=== PATIENT | female | born 2005 | race African-American/Black ===

== ENCOUNTER 2024-11-03 09:30 | Inpatient (IN) | payer BC ==
[2024-11-03 13:53] VITALS: BMI 26.6
[2024-11-03 14:04] LABS: ABSOLUTE IMMATURE GRANULOCYTES 0.04 x10^3/uL (0.0-0.031); BASOPHILS # 0.02 x10^3/uL (0.01-0.08); EOSINOPHIL % 0.4 % (0.7-5.8); EOSINOPHILS # 0.03 x10^3/uL (0.04-0.36); HEMOGLOBIN 12.2 g/dL (11.2-15.7); MCHC 32.1 g/dl (32.2-35.5); MEAN CELL VOLUME 82.3 fl (79.4-94.8); MEAN PLT VOLUME 11.6 fl (9.4-12.3); MONOCYTE # 0.42 x10^3/uL (0.24-0.86); MONOCYTE % 5.4 % (4.7-12.5); PLATELET COUNT 135 x10^3/uL (182-369); RDW 17.8 % (12.0-16.2)
[2024-11-03 14:06] LABS: INR 1.05 (0.83-1.09); PROTHROMBIN TIME (PATIENT) 11.4 SEC (9.7-13.0)
[2024-11-03 14:09] LABS: ACTIVATED PTT 28.2 SECONDS (25.2-36.5)
[2024-11-03 14:12] LABS: POTASSIUM 3.7 mmol/L (3.5-5.1)
[2024-11-03 14:14] LABS: CALCIUM 9.7 mg/dL (8.5-10.1)
[2024-11-03 14:15] LABS: ALBUMIN 2.9 g/dl (3.4-5.0); BLOOD UREA NITROGEN 7.7 mg/dL (7-18)
[2024-11-03 14:18] LABS: CREATININE 0.5 mg/dL (0.55-1.3)
[2024-11-03 14:19] LABS: BILIRUBIN,TOTAL 0.5 mg/dL (0.2-1)
[2024-11-03] MEDS ORDERED: AMPICILLIN SODIUM 2 GM VIAL ONE (14:37)
[2024-11-03] MEDS: ELECTROLYTE-148 SOLN 1,000 ML IV SCH (14:41)
[2024-11-03] MEDS: AMPICILLIN - 2 GM in SODIUM CHLORIDE 100 ML IVPB ONE ×2 (14:41→16:44)
[2024-11-03] MEDS: FENTANYL/BUPIVACAINE/NS/PF - PCEA - 50 ML DISP.SYRIN EP SCH (15:15)
[2024-11-03] MEDS ORDERED: NALOXONE HCL 0.4 MG/ML VIAL IVPUSH PRN (15:21)
[2024-11-03] MEDS ORDERED: FENTANYL/BUPIVACAINE/NS/PF - PCEA - 50 ML DISP.SYRIN EP ONE ×2 (15:21→20:03)
[2024-11-03 16:57] LABS: URINE BARBITURATES NEGATIVE (NEGATIVE)
[2024-11-03 16:58] LABS: COCAINE, UR NEGATIVE (NEGATIVE); METHADONE, UR NEGATIVE (NEGATIVE); PHENCYCLIDINE,URINE NEGATIVE (NEGATIVE)
[2024-11-03 17:27] LABS: OPIATES, URI NEGATIVE (NEGATIVE); URINE AMPHETAMINES NEGATIVE (NEGATIVE); URINE BENZODIAZEPINES NEGATIVE (NEGATIVE)
[2024-11-03] MEDS: AMPICILLIN - 1 GM in SODIUM CHLORIDE 100 ML IVPB SCH (18:30)
[2024-11-03] MEDS ORDERED: AMPICILLIN SODIUM 1 GM VIAL ONE ×2 (18:41→23:01)
[2024-11-03 21:46] LABS: HIV INTERPRETATION NEGATIVE (NEGATIVE)
[2024-11-04] MEDS ORDERED: OXYTOCIN 20 UNITS in 0.9% NS 20 UNIT/1,000 ML INFUS.BAG IV ONE (00:09)
[2024-11-04] MEDS ORDERED: FENTANYL/BUPIVACAINE/NS/PF - PCEA - 50 ML DISP.SYRIN EP ONE (00:23)
[2024-11-04] MEDS: OXYTOCIN 20 UNITS in 0.9% NS 20 UNIT/1,000 ML INFUS.BAG IV SCH (01:24)
[2024-11-04 01:52] LABS: CORD BASE EXCESS -5.5 mmol/L (0-2); CORD HCO3 19.8 mmHg (20-29); CORD PCO2 37.9 mmHg (30-78); CORD pH 7.335 (7.14-7.44)
[2024-11-04 01:53] LABS: CORD BASE EXCESS -7.6 mmol/L (0-2); CORD PCO2 62.4 mmHg (30-78); CORD pH 7.166 (7.14-7.44)
[2024-11-04] MEDS ORDERED: METHYLERGONOVINE MALEATE 0.2 MG/1 ML AMP IM PRN (02:07)
[2024-11-04] MEDS ORDERED: oxyCODONE HCL 5 MG TABLET PO PRN (02:07)
[2024-11-04] MEDS ORDERED: ACETAMINOPHEN 325 MG TABLET (FP) PO PRN (02:07)
[2024-11-04] MEDS ORDERED: BENZOCAINE 28 GM HEMORRHOIDAL OINTMENT TP PRN (02:07)
[2024-11-04] MEDS ORDERED: BISACODYL 10 MG SUPP.RECT RC PRN (02:07)
[2024-11-04] MEDS ORDERED: WITCH HAZEL 50% (TUCKS) 40 PAD/JAR PAD TP PRN (02:07)
[2024-11-04 04:33] VITALS: RESP 18
[2024-11-04] MEDS: BENZOCAINE 20% 57 GM BOTTLE TP PRN (09:22)
[2024-11-04] MEDS: PRENATAL VITAMINS W/ FOLIC ACID TABLET (FP) PO SCH (09:22)
[2024-11-04] MEDS: IBUPROFEN 600 MG TABLET (FP) PO PRN (09:22)
[2024-11-05 07:11] LABS: ABSOLUTE IMMATURE GRANULOCYTES 0.03 x10^3/uL (0.0-0.031); BASOPHILS # 0.03 x10^3/uL (0.01-0.08); EOSINOPHIL % 1.5 % (0.7-5.8); EOSINOPHILS # 0.12 x10^3/uL (0.04-0.36); HEMATOCRIT 32.5 % (34.1-44.9); HEMOGLOBIN 10.2 g/dL (11.2-15.7); MCHC 31.4 g/dl (32.2-35.5); MEAN PLT VOLUME 12.1 fl (9.4-12.3); MONOCYTE # 0.42 x10^3/uL (0.24-0.86); MONOCYTE % 5.3 % (4.7-12.5); PLATELET COUNT 121 x10^3/uL (182-369); RDW 18.2 % (12.0-16.2)
[2024-11-05] MEDS ORDERED: SENNOSIDES/DOCUSATE COMBO (SENNA PLUS) TABLET (UD) PO PRN (22:00)
[2024-11-05 23:33] VITALS: PULSE 75
[2024-11-06 10:47] VITALS: BP 113/83; TEMP 98.4
== END 2024-11-06 14:10 | disposition home or self-care (01) | DRG 560 ==
LOC: JDEL 09:30 → JLDR 12:50 → J3W 11-04 04:56
PROVIDERS: ADMIT Student in an Organized Health Care Education/Training Program; ATTEND Student in an Organized Health Care Education/Training Program
PROC: 10E0XZZ Delivery of Products of Conception, External Approach (ICD-10-PCS; principal; 2024-11-04)
PROC: 0KQM0ZZ Repair Perineum Muscle, Open Approach (ICD-10-PCS; 2024-11-04)
PROC: 0W8NXZZ Division of Female Perineum, External Approach (ICD-10-PCS; 2024-11-04)
DX: O70.1 Second degree perineal laceration during delivery (principal); Z3A.39 39 weeks gestation of pregnancy; Z37.0 Single live birth
CPT/HCPCS: 36415; 36600; 59025; 59409; 80053; 80307; 82803; 85025; 85610; 85730; 86780; 86803; 86850; 86900; 86901; 87340; 87389